=== PATIENT | male | born 1950 | race Caucasian/White ===

== ENCOUNTER 2016-08-14 12:47 | Outpatient (CLI) | payer MEDICARE ==
--- NOTE | 2016-08-15 16:59 | DIAGNOSTIC IMAGING REPORT ---
PROCEDURE: US ECHOCARDIOGRAM INDICATION: Dyspnea TECHNIQUE: Technically adequate study. The patient is in sinus rhythm. COMPARISON: None FINDINGS: Left ventricle is normal in size with end diastolic dimension of 5.4 cm. Wall thickness is normal except for very mild hypertrophy of the base of the interventricular septum which measures 1.2 cm. Wall motion is normal. Left ventricular ejection fraction is normal and estimated 60-65%. Diastolic function is normal. Right ventricle normal size and function. Left atrium mildly dilated Right atrium normal size. Aortic valve trileaflet. No stenosis or insufficiency. Mitral valve is normal in structure. There is mild insufficiency. Tricuspid valve structurally normal with mild insufficiency. Pulmonary artery pressure estimated 34 mmHg. Pulmonic valve normal in structure and function. Ascending aorta mildly dilated 4.1 cm. Pericardium appears normal without effusion. IMPRESSION: Normal left ventricular ejection fraction Normal diastolic function Normal right ventricular size and function. Mild mitral insufficiency Pulmonary artery pressure at upper limits of normal. Dilated ascending aorta 4.1 cm.
== END 2016-08-14 23:00 ==
LOC: US SRH 12:47
DX: I77.810 Thoracic aortic ectasia (principal)

== ENCOUNTER 2016-09-18 11:54 | Outpatient (CLI) | payer OTHER ==
--- NOTE | 2016-09-20 16:43 | DIAGNOSTIC IMAGING REPORT ---
PROCEDURE: NM CARDIAC STRESS TEST INDICATION: Shortness of breath TECHNIQUE: There is an exercise treadmill nuclear imaging stress test. 10 mCi technetium 99m labeled sestamibi used for rest imaging and 31 mCi for stress imaging. The patient achieved 94% of age-predicted maximum heart rate. Exercise portion of study was interpreted as being normal. COMPARISON: None FINDINGS: SPECT imaging shows a very small and mild mid anterior defect only in short axis imaging not present on any of the other images. There is some stress score for the study zero. Overall there is no evidence of infarct or ischemia. Gated SPECT imaging shows ejection fraction 62%, end-diastolic volume 111 ml, end-systolic volume 42 ml and normal wall thickening and wall motion. There is no transient ischemic dilatation. T.i.d. score is 0.90 IMPRESSION: No infarct or ischemia Normal left ventricular size, ejection fraction and wall motion. Low risk study.
== END 2016-09-18 23:00 ==
LOC: NM SRH 11:54
PROC: 4A02XM4 Measurement of Cardiac Total Activity, External Approach (ICD-10-PCS; principal; 2016-09-18)
DX: R06.02 Shortness of breath (principal)